=== PATIENT | male | born 1970 | race Caucasian/White ===

== ENCOUNTER 2019-02-08 05:56 | Emergency (ER) | payer OTHER ==
[~2019-02-08] VITALS: Ht 167.6 cm; Wt 77.1 kg
[2019-02-08] MEDS ORDERED: LEVOTHYROXINE (06:06)
[2019-02-08] MEDS ORDERED: LISINOPRIL (06:06)
[2019-02-08] MEDS ORDERED: HYDROCHLOROTHIAZIDE (06:07)
[2019-02-08 07:49] VITALS: BP 122/87
== END 2019-02-08 07:52 | disposition home or self-care (01) ==
LOC: M.ERS 05:56
DX: S01.01XA Laceration without foreign body of scalp, initial encounter (principal); E03.9 Hypothyroidism, unspecified; W10.9XXA Fall (on) (from) unspecified stairs and steps, initial encounter; Y92.89 Other specified places as the place of occurrence of the external cause; Y93.89 Activity, other specified; Y99.8 Other external cause status